=== PATIENT | male | born 1945 | race Two or more races ===

== ENCOUNTER 2024-12-15 09:18 | Inpatient (IN) | payer OTHER, MEDICAID ==
[~2024-12-15] VITALS: Ht 182.9 cm; Wt 63.0 kg
--- NOTE | 2024-12-15 10:36 | ED.PDOC ---
HPI Comments 79 y/o M, presents to the ED for CC of chest pain. Patient states he has been experiencing left-sided, non-radiating, chest pain with associated symptoms of shortness of breath x1week. Patient reports, chest pain to be "tight" in nature. Patient denies fever, chills, sore-throat, abdominal pain, nausea, vomiting, headache, numbness, or tingling. No other symptoms or modifying factors are present at this time. Chief Complaint: Chest Pain Time Seen by MD: 09:45 Reviewed Notes: Nurses Notes, Medications, Allergies Allergies: Coded Allergies: NO KNOWN ALLERGIES (Unverified , 12/15/24) Information Source: Patient Mode of Arrival: Wheelchair Severity: Moderate Timing: Weeks Duration: Since onset Prehospital treatment: None Location: Chest (L) Radiation: No Radiation Quality: Tightness Onset: At Rest Cardiac Risk Factors: None PE Risk Factors: None History of: None Modifying Factors: Nothing Associated Signs and Symptoms: SOB Past Medical History PAST MEDICAL HISTORY: Denies Surgical History: Denies all surgeries Family History Family History: Unknown Social History Smoker: Non-Smoker Alcohol: Denies ETOH Use Drugs: Denies Drug Use Lives In: Home Constitutional: denies: chills, diaphoresis, fatigue, fever, malaise, sweats, weakness, others EENTM: denies: blurred vision, double vision, ear bleeding, ear discharge, ear drainage, ear pain, ear ringing, eye pain, eye redness, hearing loss, mouth pain, mouth swelling, nasal discharge, nose bleeding, nose congestion, nose pain, photophobia, tearing, throat pain, throat swelling, voice changes, others Respiratory: reports: shortness of breath; denies: cough, hemoptysis, orthopnea, SOB at rest, SOB with excertion, stridor, wheezing, others Cardiovascular: reports: chest pain; denies: dizzy spells, diaphoresis, Dyspnea on exertion, edema, irregular heart beat, left arm pain, lightheadedness, palpitations, PND, syncope, others Gastrointestinal: denies: abdomen distended, abdominal pain, blood streaked bowels, constipated, diarrhea, dysphagia, difficulty swallowing, hematemesis, melena, nausea, poor appetite, poor fluid intake, rectal bleeding, rectal pain, vomiting, others Genitourinary: denies: burning, dysuria, flank pain, frequency, hematuria, incontinence, penile discharge, penile sore, pain, testicle pain, testicle swelling, urgency, others Neurological: denies: dizziness, fainting, headache, left sided numbness, left sided weakness, numbness, paresthesia, pre-existing deficit, right sided numbness, right sided weakness, seizure, speech problems, tingling, tremors, weakness, others Musculoskeletal: denies: back pain, gout, joint pain, joint swelling, muscle pain, muscle stiffness, neck pain, others Integumetry: denies: bruises, change in color, change in hair/nails, dryness, laceration, lesions, lumps, rash, wounds, others Allergic/Immunocompromised: denies: Difficulty Healing, Frequent Infections, Hives, Itching, others Hematologic/Lymphatic: denies: anemia, blood clots, easy bleeding, easy bruising, swollen glands, others Endocrine: denies: excessive hunger, excessive sweating, excessive thirst, excessive urination, flushing, intolerance to cold, intolerance to heat, unexplained weight gain, unexplained weight loss, others Psychiatric: denies: anxiety, bipolar disorder, depression, hopeless, panic disorder, schizophrenia, sleepless, suicidal, others All Other Systems: Reviewed and Negative Physical Exam General Appearance: No Apparent Distress, Normal HEENT: Normal ENT Inspection, Pharynx Normal Neck: Full Range of Motion, Non-Tender, Normal, Normal Inspection Respiratory: Chest Non-Tender, Lungs Clear, No Accessory Muscle Use, No Respiratory Distress, Normal Breath Sounds Cardiovascular: No Edema, No Murmur, No Gallop, Normal Peripheral Pulses, Regular Rate/Rhythm Breast Exam: Deferred Gastrointestinal: No Organomegaly, Non Tender, No Pulsatile Mass, Normal Bowel Sounds, Soft Genitalia: Deferred Pelvic: Deferred Rectal: Deferred Extremities: No calf tenderness, Normal capillary refill, Normal inspection, Normal range of motion, Non-tender, No pedal edema Musculoskeletal : Apperance: Normal Neurologic: Alert, professional bondsman II-XII nml as Tested, No Motor Deficits, Normal Affect, Normal Mood, No Sensory Deficits Cerebellar Function: Normal Reflexes: Normal Skin: Dry, Normal Color, Warm Lymphatic: No Adenopathy Was a procedure done? Was a procedure done?: No CP Differential Dx Differential Diagnosis: Hypoxia, PAC's Differential Diagnosis: Chest Wall Pain, Costochondritis, Esophageal reflux/spasm, Gastritis, Pneumonia X-Ray, Labs, Meds, VS Vital Signs Date Time Temp Pulse Resp B/P (MAP) Pulse Ox O2 Delivery O2 Flow Rate FiO2 12/15/24 12:33 87 12/15/24 10:20 65 12/15/24 09:24 82 12/15/24 09:18 98.0 52 18 146/67 94 98.0 Lab Test 12/15/24 12:40 12/15/24 10:56 12/15/24 09:52 Range/Units Troponin I High Sensitivity Pending 45 48 </=54 ng/L White Blood Count 7.7 4.4-10.8 10^3/uL Red Blood Count 3.34 L 4.5-5.90 10^6/uL Hemoglobin 9.9 L 13.5-17.5 g/dL Hematocrit 30.9 L 41.0-53.0 % Mean Corpuscular Volume 92.5 80.0-100.0 fL Mean Corpuscular Hemoglobin 29.6 28.0-32.0 pg Mean Corpuscular Hemoglobin Concent 32.0 32.0-36.0 g/dL Red Cell Distribution Width 17.4 H 11.8-14.3 % Platelet Count 207 140-450 10^3/uL Mean Platelet Volume 8.3 6.9-10.8 fL Neutrophils (%) (Auto) 81.1 H 37.0-80.0 % Lymphocytes (%) (Auto) 11.2 10.0-50.0 % Monocytes (%) (Auto) 6.8 0.0-12.0 % Eosinophils (%) (Auto) 0.5 0.0-7.0 % Basophils (%) (Auto) 0.4 0.0-2.0 % Neutrophils # (Auto) 6.3 1.6-8.6 10 ^3/uL Lymphocytes # (Auto) 0.9 0.4-5.4 10 ^3/uL Monocytes # (Auto) 0.5 0-1.3 10 ^3/uL Eosinophils # (Auto) 0 0-0.8 10 ^3/uL Basophils # (Auto) 0 0-0.2 10 ^3/uL Nucleated Red Blood Cells 0.1 % Sodium Level 143 136-145 mmol/L Potassium Level 4.4 3.5-5.1 mmol/L Chloride Level 103 98-107 mmol/L Carbon Dioxide Level 34 H 20-31 mmol/L Anion Gap 6 5-15 Blood Urea Nitrogen 13 9-23 mg/dL Creatinine 1.22 0.700-1.30 mg/dL Glomerular Filtration Rate Calc 60 >90 mL/min BUN/Creatinine Ratio 10.7 10.0-20.0 Serum Glucose 113 H 74-106 mg/dL Calcium Level 9.3 8.7-10.4 mg/dL [place] [id number] Ph: [phone] DIAGNOSTIC IMAGING Diagnostic Imaging Report : [id number] Signed PATIENT: JAMAAL LE ACCT: [id number] UNIT: [id number] : 1945 LOC: ER ROOM / BED: / AGE / SEX: 79 / M ADM STATUS: REG ER SERVICE 0936 ORDERING PHYSICIAN: MILE BROOKS MD PROCEDURE(s): CXRP - CHEST PORTABLE REASON: chest pain ORDER NUMBER(s): [id number], ACCESSION NUMBER(s): [id number] XY CHEST PORTABLE, HISTORY: chest pain COMPARISON: None None TECHNICAL DATA: 1 view of the chest was obtained. FINDINGS: Lines and tubes: None Cardiomediastinal silhouette: normal Pulmonary vasculature: prominent Lung expansion: normal Lung airspace: Trace bibasilar atelectasis. Lung interstitium: normal Pleura: Trace right pleural effusion. Pneumothorax: no Bones: Unremarkable Other: no IMPRESSION: Trace bibasilar atelectasis. Trace right pleural effusion. ATED BY: JOSE GUADALUPE PAGE MD DICTATED DATE/TIME: 12/15/24 1038 SIGNED BY: JOSE GUADALUPE PAGE MD SIGNED DATE/TIME: 12/15/24 1038 CC: Time of 1ST Reevaluation: 10:15 Reevaluation 1ST: Unchanged Patient Education/Counseling: Diagnosis, Treatment Family Education/Counseling: No Family Present SEPSIS Sepsis Screen Date sepsis recognized/suspect: Dec 15, 2024 Time Sepsis recognized/suspect: 0918 Recent Procedure: No On Antibiotic Therapy: No Respiratory Rate >20: No Heart Rate >90: No Temp<36 C (96.8 F) or >38.3 C: No SBP <90 or MAP <65 mmHG: No New Acute Mental Status Change: No Is the patient on CPAP, BIPAP,: No Physician Orders Chest Portable (12/15/24 09:36) Troponin-I Hs (12/15/24 12:36) Vital Signs Date Time Temp Pulse Resp B/P (MAP) Pulse Ox O2 Delivery O2 Flow Rate FiO2 12/15/24 12:33 87 12/15/24 10:20 65 12/15/24 09:24 82 12/15/24 09:18 98.0 52 18 146/67 94 98.0 Laboratory Tests Test 12/15/24 09:52 White Blood Count 7.7 10^3/uL (4.4-10.8) Departure 1 Departure Time of Disposition: 13:16 ([place] Authorization [id number] presented with chest pain that was concerning for possible STEMI, ACS, PE, Pneumonia, Muscle Strain, COPD, Dissection. Data: 1. I ordered and reviewed the result of at least 3 labs including a CBC, BMP, and Troponin. 2. I independently interpreted the following tests: EKG which shows sinus arrhythmia and Chest X- ray which shows left pleural effusion.Risk:This patient has a high risk of morbidity due to further diagnostic testing or treatment and may suffer from an acute cardiac or respiratory disorder. Workup reveals concern for ACS and patient should be admitted for further workup and possible expert consultation. ) Impression: Primary Impression: Acute chest pain Additional Impression: Shortness of breath Disposition: 02 SHORT TERM HOSPITAL Admit to: Med Surg Condition: Serious Critical Care Note Critical Care Time?: Yes Critical care comment: Acute chest pain Authorized and Performed by: Mile Brooks MD Total critical care time: Approximately 38 minutes Due to a high probability of clinically significant, life threatening deterioration, the patient required my highest level of preparedness to intervene emergently and I personally spent this critical care time directly and personally managing the patient. This critical care time included obtaining a history; examining the patient; pulse oximetry; ordering and review of studies; arranging urgent treatment with development of a management plan; evaluation of patient's response to treatment; frequent reassessment; and, discussions with other providers. This critical care time was performed to assess and manage the high probability of imminent, life-threatening deterioration that could result in multi-organ failure. It was exclusive of separately billable procedures and treating other patients and teaching time. Please see my other sections and the rest of the note for further information on patient assessment and treatment. Stability Stability form required: No Heart Score Heart Score: Heart Score Response (Comments) Value History Moderate Suspicious 1 EKG Repolarization Disturb 1 Age >65 2 Risk Factors >3 or Hx ASHD 2 Troponin 1-2 x's Normal limit 1 Total 7 I personally scribed for MILE BROOKS MD ([email or web address]) on 12/15/24 at 10:35. Electronically submitted by Pat Muñoz ([email or web address]). I personally scribed for MILE BROOKS MD ([email or web address]) on 12/15/24 at 12:54. Electronically submitted by Pat Muñoz ([email or web address]). MILE BROOKS MD Dec 15, 2024 10:35
--- NOTE | 2024-12-15 10:40 | DVH ---
XY CHEST PORTABLE, HISTORY: chest pain COMPARISON: None None TECHNICAL DATA: 1 view of the chest was obtained. FINDINGS: Lines and tubes: None Cardiomediastinal silhouette: normal Pulmonary vasculature: prominent Lung expansion: normal Lung airspace: Trace bibasilar atelectasis. Lung interstitium: normal Pleura: Trace right pleural effusion. Pneumothorax: no Bones: Unremarkable Other: no IMPRESSION: Trace bibasilar atelectasis. Trace right pleural effusion.
[2024-12-15 10:41] LABS: Hematocrit 30.9 % (41.0-53.0); Hemoglobin 9.9 g/dL (13.5-17.5); Mean Corpuscular Hemoglobin 29.6 pg (28.0-32.0); Mean Corpuscular Volume 92.5 fL (80.0-100.0); Nucleated Red Blood Cells % 0.1 %
[2024-12-15 10:51] LABS: Anion Gap 6 (5-15); Chloride 103 mmol/L (98-107); Potassium 4.4 mmol/L (3.5-5.1); Sodium 143 mmol/L (136-145)
[2024-12-15 10:52] LABS: Calcium 9.3 mg/dL (8.7-10.4)
[2024-12-15 10:56] LABS: Carbon Dioxide 34 mmol/L (20-31)
[2024-12-15 10:57] LABS: BUN/Creatinine Ratio 10.7 (10.0-20.0); Blood Urea Nitrogen 13 mg/dL (9-23)
[2024-12-15 10:58] LABS: Glucose 113 mg/dL (74-106)
--- NOTE | 2024-12-15 12:36 | ECG ---
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
--- NOTE | 2024-12-15 12:36 | ECG ---
[facility] Test Date: 2024-12-15 Test Time: 10:20:33 Pat Name: JAMAAL LE Department: [facility] ED Patient ID: [id number] Room: Gender: M Usability Strategist: SAMANTHA : 1945 Requested By: MILE MCDUFFIE Order Number: [id number] Reading MD: Measurements Intervals [place] Rate: 65 P: 0 VA: 0 QRS: 95 QRSD: 127 T: 13 QT: 417 QTc: 434 Interpretive Statements Atrial fibrillation Consider left ventricular hypertrophy Lateral infarct, age indeterminate Anterior ST elevation, probably due to LVH Please click the below link to view image of tracing.
--- NOTE | 2024-12-15 12:37 | ECG ---
[facility] Test Date: 2024-12-15 Test Time: 12:33:09 Pat Name: JAMAAL LE Department: [facility] ED Patient ID: [id number] Room: Gender: M Barrel Polisher Inside: SAMANTHA : 1945 Requested By: MILE MCDUFFIE Order Number: [id number] Reading MD: Measurements Intervals [place] Rate: 87 P: 0 AR: 0 QRS: 108 QRSD: 131 T: 22 QT: 389 QTc: 468 Interpretive Statements Atrial fibrillation Nonspecific intraventricular conduction delay Lateral infarct, age indeterminate Borderline ST elevation, anterior leads Baseline wander in lead(s) II Please click the below link to view image of tracing.
[2024-12-15] MEDS: NITROGLYCERIN 0.4 MG SL TAB SL ONE (14:08)
[2024-12-15] MEDS ORDERED: MORPHINE SULFATE INJ 2 MG/ml SYRG IV PRN (19:30)
[2024-12-15] MEDS ORDERED: ONDANSETRON HCL 4 MG/2 ML VIAL IV PRN (19:30)
[2024-12-15] MEDS ORDERED: NITROGLYCERIN 0.4 MG SL TAB SL PRN (19:30)
[2024-12-15 21:00] VITALS: BP 135/59; PULSE 56; RESP 18; TEMP 97.8; O2SAT 100
[2024-12-15] MEDS ORDERED: ALBUTEROL SULF 2.5 MG/0.5ML(0.5%) NEB SOLN NEB PRN (21:45)
--- NOTE | 2024-12-15 21:49 | DVHHP2 ---
History of Present Illness Reason for Visit: Chest pain History of Present Illness 79-year-old male presents for evaluation of chest pain. Patient reports a one- week history of left-sided nonradiating chest tightness with shortness for breath. No nausea or vomiting. No cough or fever. Past Medical History Hypertension, COPD, prediabetes Past Surgical History Open heart surgery Family History Noncontributory Smoke: No ALCOHOL: none Drugs: None Review of Systems Review of Systems Review of systems are currently negative otherwise addressed in HPI. Allergies: Coded Allergies: NO KNOWN ALLERGIES (Unverified , 12/15/24) Medications Current Medications Medications Dose Ordered Sig/Ricky Route Start Time Stop Time Status Last Admin Dose Admin Aspirin 81 mg DAILY PO 12/16/24 10:00 Atorvastatin Calcium 10 mg HS PO 12/15/24 22:00 Ondansetron HCl 4 mg Q4HP PRN IV 12/15/24 19:30 Acetaminophen 650 mg Q6HP PRN PO 12/15/24 19:30 Nitroglycerin 0.4 mg Q5MINP PRN SL 12/15/24 19:30 Morphine Sulfate 2 mg Q30M PRN IV 12/15/24 19:30 Lisinopril 10 mg DAILY PO 12/16/24 10:00 UNV Albuterol 2.5 mg Q6HPRN PRN NEB 12/15/24 21:45 UNV Exam Vital Signs Vital Signs Date Time Temp Pulse Resp B/P (MAP) Pulse Ox O2 Delivery O2 Flow Rate FiO2 12/15/24 21:00 97.8 56 18 135/59 (84) 100 97.8 Exam Gen: 79-year-old male in mild distress. Skin: Warm, dry, normal color and texture, no rash. HEENT: Normocephalic atraumatic, mucous membranes moist and pink. Neck: Cervical and supraclavicular nodes normal without enlargement, trachea is midline, thyroid gland is normal without masses. Pulmonary: Clear to auscultation and percussion bilaterally. Cardiac: Regular rate and rhythm. No murmur Abdomen: Soft, nontender, nondistended, bowel sounds present all 4 quadrants, no guarding, no rigidity, no organomegaly. Extremities: No cyanosis, clubbing, no edema Neuro: Cranial nerves II through XII grossly intact, normal affect and speech, no focal motor deficits. Labs/Xrays ORDERING PHYSICIAN: MILE MCDUFFIE MD PROCEDURE(s): CXRP - CHEST PORTABLE REASON: chest pain ORDER NUMBER(s): [id number], ACCESSION NUMBER(s): [id number] XY CHEST PORTABLE, HISTORY: chest pain COMPARISON: None None TECHNICAL DATA: 1 view of the chest was obtained. FINDINGS: Lines and tubes: None Cardiomediastinal silhouette: normal Pulmonary vasculature: prominent Lung expansion: normal Lung airspace: Trace bibasilar atelectasis. Lung interstitium: normal Pleura: Trace right pleural effusion. Pneumothorax: no Bones: Unremarkable Other: no IMPRESSION: Trace bibasilar atelectasis. Trace right pleural effusion. Labs Test 12/15/24 12:40 12/15/24 09:52 Range/Units Troponin I High Sensitivity 44 </=54 ng/L White Blood Count 7.7 4.4-10.8 10^3/uL Red Blood Count 3.34 L 4.5-5.90 10^6/uL Hemoglobin 9.9 L 13.5-17.5 g/dL Hematocrit 30.9 L 41.0-53.0 % Mean Corpuscular Volume 92.5 80.0-100.0 fL Mean Corpuscular Hemoglobin 29.6 28.0-32.0 pg Mean Corpuscular Hemoglobin Concent 32.0 32.0-36.0 g/dL Red Cell Distribution Width 17.4 H 11.8-14.3 % Platelet Count 207 140-450 10^3/uL Mean Platelet Volume 8.3 6.9-10.8 fL Neutrophils (%) (Auto) 81.1 H 37.0-80.0 % Lymphocytes (%) (Auto) 11.2 10.0-50.0 % Monocytes (%) (Auto) 6.8 0.0-12.0 % Eosinophils (%) (Auto) 0.5 0.0-7.0 % Basophils (%) (Auto) 0.4 0.0-2.0 % Neutrophils # (Auto) 6.3 1.6-8.6 10 ^3/uL Lymphocytes # (Auto) 0.9 0.4-5.4 10 ^3/uL Monocytes # (Auto) 0.5 0-1.3 10 ^3/uL Eosinophils # (Auto) 0 0-0.8 10 ^3/uL Basophils # (Auto) 0 0-0.2 10 ^3/uL Nucleated Red Blood Cells 0.1 % Sodium Level 143 136-145 mmol/L Potassium Level 4.4 3.5-5.1 mmol/L Chloride Level 103 98-107 mmol/L Carbon Dioxide Level 34 H 20-31 mmol/L Anion Gap 6 5-15 Blood Urea Nitrogen 13 9-23 mg/dL Creatinine 1.22 0.700-1.30 mg/dL Glomerular Filtration Rate Calc 60 >90 mL/min BUN/Creatinine Ratio 10.7 10.0-20.0 Serum Glucose 113 H 74-106 mg/dL Calcium Level 9.3 8.7-10.4 mg/dL SEPSIS Sepsis Screen Date sepsis recognized/suspect: Dec 15, 2024 Time Sepsis recognized/suspect: 917 Recent Procedure: No On Antibiotic Therapy: No Respiratory Rate >20: No Heart Rate >90: No Temp<36 C (96.8 F) or >38.3 C: No SBP <90 or MAP <65 mmHG: No New Acute Mental Status Change: No Is the patient on CPAP, BIPAP,: No Physician Orders Aspirin Tablet (12/16/24 10:00) Atorvastatin (Lipitor) (12/15/24 22:00) Basic Metabolic Panel (12/16/24 04:00) * Cardiology Consult (12/15/24 19:21) Admit (12/15/24 19:21) Ondansetron Hcl (Zofran) (12/15/24 19:30) Cardiac Diet-2gna,Lofat,Lochol (12/16/24 Breakfast) Echo 2d Mode Cardiac Dop (12/15/24 19:21) Condition: Fair (12/15/24 19:21) Acetaminophen Tablet (Tylenol Tablet) (12/15/24 19:30) Bedrest With Bathroom Privileg (12/15/24 19:21) Nitroglycerin Sublingual (Ntrostat Subli (12/15/24 19:30) Morphine Sulfate Injection (12/15/24 19:30) Stat Ekg For Chest Pain (12/15/24 19:21) Notify Md Of Changes From Base (12/15/24 19:21) Kitchen Hand For 24 Hours (12/15/24 19:21) Emergency Dysrhythmia Protocol (12/15/24 19:21) Rhythm Strips Once Every Shift (12/15/24 19:21) Oxygen By Nasal Cannula (12/15/24 19:21) Complete Blood Count (12/16/24 04:00) Lisinopril Tablet (Zestril Tablet) (12/16/24 10:00) Albuterol Medneb (Ventolin Medneb) (12/15/24 21:45) Vital Signs Date Time Temp Pulse Resp B/P (MAP) Pulse Ox O2 Delivery O2 Flow Rate FiO2 12/15/24 21:00 97.8 56 18 135/59 (84) 100 97.8 12/15/24 20:43 63 19 135/59 (84) 97 12/15/24 20:00 59 12/15/24 14:10 98.0 56 16 153/68 (96) 91 98.0 12/15/24 14:08 153/68 Laboratory Tests Test 12/15/24 09:52 White Blood Count 7.7 10^3/uL (4.4-10.8) Medications Medications Dose Ordered Sig/Ricky Route Start Time Stop Time Status Last Admin Dose Admin Aspirin 324 mg ONCE ONCE PO 12/15/24 13:15 12/15/24 13:46 DC 12/15/24 14:07 324 MG Nitroglycerin 0.4 mg ONCE ONCE SL 12/15/24 13:15 12/15/24 13:46 DC 12/15/24 14:08 0.4 MG Assessment/Plan Assessment/Plan Assessment Chest pain rule out ACS Hypertension COPD Mild anemia Plan Admit the patient to telemetry to the hospitalist Cardiology consultation Echocardiogram pending Family will provide list of medications tomorrow. Continue treatment per orders. Plan discussed with: Patient, Other My Orders Orders - ATILIO MASON Procedure Category Date Status Time Aspirin Tablet PHA 12/16/24 In Process 10:00 Atorvastatin (Lipitor) PHA 12/15/24 In Process 22:00 Basic Metabolic Panel LAB 12/16/24 Verified 04:00 * Cardiology Consult CONS 12/15/24 Transmitted 19:21 Admit ADMIT 12/15/24 Transmitted 19:21 Ondansetron Hcl PHA 12/15/24 In Process (Zofran) 19:30 Cardiac DIET 12/16/24 Transmitted Diet-2gna,Lofat,Lochol Breakfast Echo 2d Mode Cardiac US 12/15/24 Logged DOP 19:21 Condition: Fair [facility] 12/15/24 In Process 19:21 Acetaminophen Tablet [facility] 12/15/24 In Process (Tylenol Tablet) 19:30 Bedrest With Bathroom [facility] 12/15/24 In Process Privileg 19:21 Nitroglycerin [facility] 12/15/24 In Process Sublingual (Ntrostat 19:30 Morphine Sulfate [facility] 12/15/24 In Process Injection 19:30 Stat Ekg For Chest [facility] 12/15/24 In Process Pain 19:21 Notify Md Of Changes [facility] 12/15/24 In Process From Base 19:21 Kitchen Hand For [facility] 12/15/24 In Process 24 Hours 19:21 Emergency Dysrhythmia [facility] 12/15/24 In Process Protocol 19:21 Rhythm Strips Once [facility] 12/15/24 In Process Every Shift 19:21 Oxygen By Nasal RT 12/15/24 Transmitted Cannula 19:21 Complete Blood Count LAB 12/16/24 Verified 04:00 Lisinopril Tablet [facility] 12/16/24 Transmitted (Zestril Tablet) 10:00 Albuterol Medneb [facility] 12/15/24 Transmitted (Ventolin Medneb) 21:45 Date of Service: Dec 15, 2024 Billing Provider: ATILIO MASON Common Visit Codes: [id number] INP/OBS CARE (HIGH) ATILIO MASON Dec 15, 2024 21:49
[2024-12-15 22:23] LABS: INR 1.13 (0.9-1.15); Partial Thromboplastin Time 25.5 SEC (24.5-34.5); Prothrombin Time 11.8 sec (9.3-11.8)
[2024-12-15 22:25] LABS: Total Iron Binding Capacity 350.0 ug/dL (250-425)
[2024-12-15] MEDS: ATORVASTATIN 20 MG TAB PO SCH (22:28)
[2024-12-15 22:36] LABS: Triglycerides 32 mg/dL (< 150)
[2024-12-15 22:38] LABS: Cholesterol 121 mg/dL (< 200); HDL Cholesterol 54 mg/dL (40-59)
[2024-12-15 22:41] LABS: Iron 28.0 ug/dL (65-175)
[2024-12-15 23:27] VITALS: BP 146/81; PULSE 65; RESP 17; TEMP 98.5; O2SAT 100
[2024-12-15 23:37] VITALS: BP 146/81; PULSE 65; RESP 17; TEMP 98.5; O2SAT 100
[2024-12-16] VITALS (11 sets, daily range): BP systolic 103–135; BP diastolic 49–79; PULSE 47–80; RESP 12–18; TEMP 97.8–98.5; O2SAT 94–100
[2024-12-16 07:29] LABS: Chloride 105 mmol/L (98-107); Potassium 5.0 mmol/L (3.5-5.1); Sodium 142 mmol/L (136-145)
[2024-12-16 07:30] LABS: Anion Gap 4 (5-15); Hematocrit 28.4 % (41.0-53.0); Hemoglobin 9.2 g/dL (13.5-17.5); Mean Corpuscular Hemoglobin 29.6 pg (28.0-32.0); Mean Corpuscular Volume 91.6 fL (80.0-100.0); Nucleated Red Blood Cells % 0.0 %
[2024-12-16 07:35] LABS: BUN/Creatinine Ratio 9.1 (10.0-20.0); Blood Urea Nitrogen 10 mg/dL (9-23); Glucose 86 mg/dL (74-106)
[2024-12-16 07:41] LABS: Calcium 8.6 mg/dL (8.7-10.4); Carbon Dioxide 33 mmol/L (20-31)
[2024-12-16] MEDS ORDERED: ENOXAPARIN SOD 100 MG/1 ML SYRINGE SC SCH (10:00)
[2024-12-16] MEDS: LISINOPRIL 5 MG TAB PO SCH (10:00)
[2024-12-16] MEDS: FUROSEMIDE 40 MG/4 ML VIAL IV ONE (10:45)
[2024-12-16 10:51] LABS: Hepatitis B Surface Antigen Negative (Negative); Hepatitis C Antibody Negative (Negative)
--- NOTE | 2024-12-16 10:59 | DVHINCON2 ---
Date Seen: Dec 16, 2024 Referring Physician BRITTON Prajapati Reason for Consultation Chest pain History of Present Illness This is a 79-year-old man who presented to the emergency room with a chief complaint of chest pain since yesterday. He is somewhat a poor historian. Describes his chest pain as substernal, tightness like, nonradiating, intermittent, and associated with ALANIS, dizziness, and visual disturbances. He underwent multiple 12 lead electrocardiogram revealing an atrial fibrillation rhythm at a controlled rate with noticeable ventricular pauses. cardiac monitor reviewed revealing a persistent atrial fibrillation rhythm with a heart rate as low as 37 bpm and associated ventricular pauses up to 3 seconds. Serial troponin levels are negative. Follows up in the outpatient setting with the primary electrical solderer in [facility] with last appointment completed three months ago. Significant medical history includes unspecified atrial fibrillation on warfarin therapy, coronary artery disease status post unspecified vessel coronary artery bypass graft in 2018, severe aortic valve stenosis status post transcatheter aortic valve replacement (bioprosthetic) in 2020, congestive heart failure, hypertension, dyslipidemia, anemia in chronic disease, and left inguinal hernia. Past Medical History Past medical history reviewed. No other significant than mentioned above. Past Surgical History CABG, 2018 TAVR, 2020 Family History: FH: alcoholism G8 SISTER FH: cancer G8 FATHER, Family History Family history reviewed. Social History Denies the use of illicit drugs, alcohol, or tobacco use. Allergies: Coded Allergies: NO KNOWN ALLERGIES (Unverified , 12/15/24) Home Meds Home meds not available to review. Current Medications Current Medications Medications (Trade) Dose Ordered Sig/Ricky Route PRN Reason Start Time Stop Time Status Last Admin Aspirin 81 mg DAILY PO 12/16/24 10:00 12/16/24 09:57 Atorvastatin Calcium (Lipitor) 10 mg HS PO 12/15/24 22:00 12/15/24 22:28 Ondansetron HCl (Zofran) 4 mg Q4HP PRN IV NAUSEA / VOMITING 12/15/24 19:30 Acetaminophen (Tylenol Tablet) 650 mg Q6HP PRN PO PAIN SCALE 1-3 OR TEMP>100.4 12/15/24 19:30 Nitroglycerin (Ntrostat Sublingual) 0.4 mg Q5MINP PRN SL FOR CHEST PAIN 12/15/24 19:30 Morphine Sulfate 2 mg Q30M PRN IV FOR CHEST PAIN 12/15/24 19:30 Lisinopril (Zestril Tablet) 10 mg DAILY PO 12/16/24 10:00 Albuterol (Ventolin Medneb) 2.5 mg Q6HPRN PRN NEB SHORTNESS OF BREATH 12/15/24 21:45 Enoxaparin Sodium (Lovenox) 70 mg Q12HR SC 12/16/24 10:00 Review of Systems Constitutional: No symptom reported Ears, Nose, & Throat: No symptom reported Eyes: No symptom reported Neurological: Headache, dizziness, visual disturbance Pulmonary/Respiratory: No symptom reported Cardiovascular: Chest pain Gastrointestinal: No symptom reported Genitourinary: No symptom reported Musculoskeletal: No symptom reported Skin: No symptom reported Psychiatric: No symptom reported Endocrine: No symptom reported Hemotologic/Lymphatic: No symptom reported Vital Signs Vital Signs Date Time Temp Pulse Resp B/P (MAP) Pulse Ox O2 Delivery O2 Flow Rate FiO2 12/16/24 10:00 103/52 12/16/24 09:24 98.4 52 14 100 98.4 12/16/24 08:31 Nasal Cannula* 2 28 Physical Exam General Appearance: Cooperative. Well developed. Thin. In no acute distress Head Exam: Normal inspection Neck Exam: Normal inspection. Non-tender. Normal alignment Pulmonary/Respiratory: Chest non-tender. Diminished bilateral breath sounds Cardiovascular/Chest: Irregularly irregular rate and rhythm. AFib, controlled rate. No murmurs. + JVD. Peripheral Pulses: 2+ Radial (R). 2+ Radial (L). 2+ Pedal (R). 2+ Pedal (L) Abdominal Exam: Normal bowel sounds. Soft. Ankle Exam: Positive ankle pitting edema, 1+ Lower extremities: Positive lower extremity pitting edema, 1+ Neuro/Mental Status: A&O x3. Coherent but poor historian Thoughts/Psych: Normal thought pattern. Appropriate mood and affect. Good judgement and insight Appearance: In no acute distress Skin Exam: Normal inspection. Normal color. Warm. Dry Labs/Diagnostic Data Labs Test 12/16/24 06:06 12/15/24 22:00 12/15/24 12:40 Range/Units White Blood Count 6.6 4.4-10.8 10^3/uL Red Blood Count 3.10 L 4.5-5.90 10^6/uL Hemoglobin 9.2 L 13.5-17.5 g/dL Hematocrit 28.4 L 41.0-53.0 % Mean Corpuscular Volume 91.6 80.0-100.0 fL Mean Corpuscular Hemoglobin 29.6 28.0-32.0 pg Mean Corpuscular Hemoglobin Concent 32.3 32.0-36.0 g/dL Red Cell Distribution Width 17.6 H 11.8-14.3 % Platelet Count 176 140-450 10^3/uL Mean Platelet Volume 8.8 6.9-10.8 fL Neutrophils (%) (Auto) 67.5 37.0-80.0 % Lymphocytes (%) (Auto) 19.7 10.0-50.0 % Monocytes (%) (Auto) 10.6 0.0-12.0 % Eosinophils (%) (Auto) 1.7 0.0-7.0 % Basophils (%) (Auto) 0.5 0.0-2.0 % Neutrophils # (Auto) 4.5 1.6-8.6 10 ^3/uL Lymphocytes # (Auto) 1.3 0.4-5.4 10 ^3/uL Monocytes # (Auto) 0.7 0-1.3 10 ^3/uL Eosinophils # (Auto) 0.1 0-0.8 10 ^3/uL Basophils # (Auto) 0 0-0.2 10 ^3/uL Nucleated Red Blood Cells 0.0 % Sodium Level 142 136-145 mmol/L Potassium Level 5.0 3.5-5.1 mmol/L Chloride Level 105 98-107 mmol/L Carbon Dioxide Level 33 H 20-31 mmol/L Anion Gap 4 L 5-15 Blood Urea Nitrogen 10 9-23 mg/dL Creatinine 1.10 0.700-1.30 mg/dL Glomerular Filtration Rate Calc 68 >90 mL/min BUN/Creatinine Ratio 9.1 L 10.0-20.0 Serum Glucose 86 74-106 mg/dL Calcium Level 8.6 L 8.7-10.4 mg/dL Prothrombin Time 11.8 9.3-11.8 sec Prothrombin Time INR 1.13 0.9-1.15 Activated Partial Thromboplast Time 25.5 24.5-34.5 SEC Iron Level 28 L 65-175 ug/dL Total Iron Binding Capacity 350 250-425 ug/dL Percent Iron Saturation 8.0 L 20-55 % Triglycerides Level 32 < 150 mg/dL Cholesterol Level 121 < 200 mg/dL LDL Cholesterol 54 < 100 mg/dL HDL Cholesterol 54 40-59 mg/dL Troponin I High Sensitivity 44 </=54 ng/L Thyroid Stimulating Hormone (TSH) 1.22 0.55-4.78 uIU/mL Assessment Atrial fibrillation with slow ventricular rate, likely Stage IIIb (on warfarin therapy at home) Acute on chronic decompensated unspecified CHF, NYHA Class III Chest pain rule out progressive coronary artery disease Coronary artery disease status post unspecified vessel CABG Status post TAVR (bioprosthetic) Hypertension Anemia in chronic disease Plan/Recommendation (Dr. Grimm) We will continue further cardiac evaluation with a transthoracic echocardiogram and Cardiolite stress test to rule out progressive coronary artery disease. The patient also presents with atrial fibrillation with slow ventricular rate with recommendations for a pacemaker implantation. Hold warfarin therapy and initiate therapeutic Lovenox. Monitor ECG changes closely and notify for a heart rate < 30 bpm. Avoid AV kenya blocking agents. Consider transcutaneous vs transvenous pacing if deemed necessary as last warfarin administration was completed on . Continue single-antiplatelet therapy and lipid lowering agent given history of CAD. Initiate preload reduction, strict I&Os, and maintain fluid restrictions. Please reconcile home medications. Consider transfer to [facility] for invasive cardiac procedures. Rest of orders per clinical course. Thank you for allowing us to participate in this patient's care. Please call if you have any questions or concerns. Critical care time: 45 min. This medical document was created using an electronic medical record system with voice recognition software and computerized dictation system. Although this document has been carefully reviewed, there might still be some phonetic and typographical errors. Occasional wrong-word or ``sound-alike substitutions may have occurred due to the inherent limitations of voice recognition software. These areas are purely typographical due to imperfections of the software programs and do not reflect any compromise in the patient's medical care. Please read the chart carefully and recognize, using context, where these substitutions have occurred. Plan discussed with: Patient, Other NYHA Physical activity limitations: Class3(Marked) ordinary (activity causes symtoms) Date of Service: Dec 16, 2024 Billing Provider: ROLAND CLINE HUMANE OFFICER Cardiology Common Codes: [id number] CARE 30-74 MIN ROLAND CLINE [facility] Dec 16, 2024 10:59
[2024-12-16] MEDS: REGADENOSON 0.4 MG/5 ML SYRG IV ONE ×2 (11:42→11:43)
--- NOTE | 2024-12-16 13:57 | DVHPNRES ---
Progress Note Date Seen: Dec 16, 2024 Resident Creating Document: EDWINA LOZANO RESIDENT Medical Necessity Reason Pt with a Central, PICC or Fol: No Subjective Review of Systems Sampson Ramos is a 79-year-old man with past medical history of CABG, aortic valve placement, CHF, hypertension, dyslipidemia, anemia of chronic disease who presented to the emergency room with a chief complaint of chest pain since yesterday. He is somewhat a poor historian. He describes his chest pain as substernal, tightness like, nonradiating, intermittent, and associated with headache, dizziness, and visual disturbances. He underwent multiple 12 lead electrocardiogram, revealing an atrial fibrillation rhythm at a controlled rate with noticeable ventricular pauses. Serial troponin levels were negative. Cardiology was consulted and they recommended Cardiolite stress test to rule out progressive coronary artery disease. Telemetry was reviewed which showed episodes of AFib. Possibility of a pacemaker placement was discussed with the patient and warfarin was held. Pending echo and BNP. Patient also complained of burning and pain with micturition, so we placed an order for urine analysis and urine culture order. Past Medical history: COPD, CHF, hypertension, dyslipidemia, anemia of chronic disease Past surgical history: CABG, TAVR Social & Personal history: Currently lives with sister and niece Smoking: Denies Alcohol: Denies Drugs: Denies Allergies: No known allergies Patient seen and examined at bedside. Patient is alert and oriented to time, place person and responding to all questions. Eyes: No Pain, No Vision change, No Conjunctivae inflammation, No Eyelid inflammation, No Redness ENT: No Ear pain, No Ear discharge, No Nose pain, No Nose discharge, No Nose congestion, No Mouth pain, No Mouth swelling, No Throat pain, No Throat swelling Cardiovascular: No Chest Pain, No Palpitations, No Orthopnea, No Paroxysmal No Dyspnea, No Edema, No Lt Headedness Respiratory: No Cough, No Dry, No Shortness of breath, No SOB with exertion, No Wheezing, No Hemoptysis, No Pleuritic Pain, No Sputum Gastrointestinal: No Nausea, No Vomiting, No Abdominal Pain, No Diarrhea, No Constipation, No Melena, No Hematochezia Genitourinary: Dysuria, No Frequency, No Incontinence, No Hematuria, No Retention Objective vital signs Vital Sign Date Time Temp Pulse Resp B/P (MAP) Pulse Ox O2 Delivery O2 Flow Rate FiO2 12/16/24 10:00 103/52 12/16/24 09:24 98.4 52 14 100 98.4 12/16/24 08:31 Nasal Cannula* 2 28 Total Intake and Output 12/15/24 12/15/24 12/16/24 15:00 23:00 07:00 Intake Total 200 ml Balance 200 ml medications Current Medications Medications Dose Ordered Sig/Ricky Route Start Time Stop Time Status Last Admin Dose Admin Aspirin 81 mg DAILY PO 12/16/24 10:00 12/16/24 09:57 81 MG Ondansetron HCl 4 mg Q4HP PRN IV 12/15/24 19:30 Acetaminophen 650 mg Q6HP PRN PO 12/15/24 19:30 Nitroglycerin 0.4 mg Q5MINP PRN SL 12/15/24 19:30 Morphine Sulfate 2 mg Q30M PRN IV 12/15/24 19:30 Lisinopril 10 mg DAILY PO 12/16/24 10:00 Albuterol 2.5 mg Q6HPRN PRN NEB 12/15/24 21:45 Atorvastatin Calcium 40 mg HS PO 12/16/24 22:00 Furosemide 40 mg BIDD IV 12/16/24 18:00 Enoxaparin Sodium 70 mg Q12HR SC 12/16/24 10:00 Examination General Appearance: Cooperative. Well developed. Thin. In no acute distress Head Exam: Normal inspection Neck Exam: Normal inspection. Non-tender. Normal alignment Pulmonary/Respiratory: Chest non-tender. Diminished bilateral breath sounds Cardiovascular/Chest: Irregularly irregular rate and rhythm. AFib, controlled rate. No murmurs. + JVD. Peripheral Pulses: 2+ Radial (R). 2+ Radial (L). 2+ Pedal (R). 2+ Pedal (L) Abdominal Exam: Normal bowel sounds. Soft. Ankle Exam: Positive ankle pitting edema, 1+ Lower extremities: Positive lower extremity pitting edema, 1+ Neuro/Mental Status: A&O x3. Coherent but poor historian Thoughts/Psych: Normal thought pattern. Appropriate mood and affect. Good judgement and insight Appearance: In no acute distress Skin Exam: Normal inspection. Normal color. Warm. Dry Nurse was present as lockstitch machine operator during the examination. laboratory and microbiology Laboratory Tests 12/16/24 06:06 Test 12/16/24 06:06 Range/Units Serum Glucose 86 74-106 mg/dL Labs and/or images reviewed: Labs reviewed by me, Image(s) reviewed by me Problem List/Assessment/Plan Problem List/Assessment/Plan Chest pain, rule out ACS AFib History of CAD -EKG showed AFib -tropes x3 negative -echo and BNP pending -cardiology consulted-Cardiolite stress test today -hold warfarin, started on Lovenox -continue reviewing telemetry Suspected UTI -ordered UA and urine culture Essential hypertension, controlled -currently held lisinopril due to soft blood pressures, resume if needed Mild anemia -hemoglobin was 9.2, appears in 28 -monitor H and H PUD prophylaxis: Not indicated DVT prophylaxis: Not indicated Goals of care: Full code, discussed for 20 minutes Plan discussed with patient Plan discussed with Dr. Haq Plan discussed with: Patient, Other (Nurse) My Orders My Orders Orders - EDWINA LOZANO RESIDENT Procedure Category Date Status Time Urinalysis LAB 12/16/24 Logged 10:40 Urine Bacterial CB 12/16/24 Uncollected Culture 10:40 * Burglar Alarm Superintendent CONS 12/16/24 Transmitted Consult 13:35 Date of Service: Dec 16, 2024 Billing Provider: JOSE L HAQ MD Common Visit Codes: [id number] INP/OBS CARE(HIGH) Secondary Visit Codes: [id number] CARE PLAN 30 MINUTES (20 minutes) Addendum Addendum Addendum I was physically present for the duval portions of the service provided to patient by THE RESIDENT. I have reviewed the documentation, discussed the case with resident and agree with the resident's documentation except as noted. Also the patient's clinical case was discussed with the patient's nurse. This medical document was created using an electronic medical record system with computerized dictation system. Although this document has been carefully reviewed, there might still be some phonetic and typographical errors. These areas are purely typographical due to imperfections of the software programs, and do not reflect any compromise in the patient's medical care. Late signature. EDWINA LOZANO RESIDENT Dec 16, 2024 13:57 JOSE L HAQ MD Dec 17, 2024 06:51
[2024-12-16] MEDS: ENOXAPARIN SOD 80 MG/0.8ML SYRINGE SC SCH (14:51)
[2024-12-16] MEDS: FUROSEMIDE 40 MG/4 ML VIAL IV SCH (17:59)
[2024-12-16 18:01] LABS: Urine Protein, UAD Negative (Negative)
--- NOTE | 2024-12-16 19:10 | DVHSR ---
APPROVED REPORT EXAM: Two-dimensional and M-mode echocardiogram with Doppler and color Doppler. Blood Pressure: 123/55 mmHg INDICATION Chest Pain Surgery/Intervention Valve Replacement: Type: AV and MV RISK FACTORS Height: 6', Weight: 145 DIMENSIONS LVDd4.6 (3.8-5.7cm)LA (2D)5.5 (1.9-4.0cm)Aortic Root3.7 (2.0-3.7cm) LVDs3.2 (2.5-4.0cm)LA (MM) (1.9-4.0cm)Aortic Cusp Exc1.1 (1.5-2.0cm) EF (%) 57.0 (55-70%)Rt. Atrium5.9 (1.9-4.0cm)Asc. Aorta3.5 cm IVSd1.3 (0.7-1.1cm)RV (D)5.5 (1.8-2.4cm) PWd1.2 (0.7-1.1cm) Mitral Valve MitralMitral Stenosis E wave1.76m/sMV Mean GR.6mmHg A wavem/sMV Peak GR.19mmHg E/A ratio0.02D MVAcm2 DECEL TimemsPRESS 1/2 [id number] IVRTmsDop MVA1.07cm2 Aortic Valve Aortic ValveAortic Stenosis V10.83m/Lu Mean GR.17mmHg V22.89m/Lu Peak GR.33mmHg LVOT Diameter2.4 (1.8-2.4cm)Doppler AVA1.30cm2 Pulmonic Valve V20.75m/s Tricuspid Valve TR Velocity3.25m/s [id number] Conclusion BOVINE MITRAL AND AORTIC VALVE FUNCTION WELL MODERATE DEGREE LVH AND MODERATE DEGREE LV DIASTOLIC DYSFUNCTION LV EF IS 57% MODERATELY DILATED LA AND RV MODERATELY SEVERE PULMONARY HYPERTENSION NO EFFUSION SUGGESTION: ZAN IF ENDOCARDITIS IS SUSPECTED
[2024-12-16] MEDS: ATORVASTATIN 20 MG TAB PO SCH (22:33)
[2024-12-17] VITALS (10 sets, daily range): BP systolic 100–136; BP diastolic 53–77; PULSE 52–65; RESP 16–18; TEMP 97.3–98.4; O2SAT 94–100
--- NOTE | 2024-12-17 06:52 | DVHPN2 ---
Reviewed: Care Plan, H&P, Labs, Medications, Previous Orders, Radiology, Other (Consultations) Changes from previous H/P or p: No Changes Objective Vitals Vital Signs Date Time Temp Pulse Resp B/P (MAP) Pulse Ox O2 Delivery O2 Flow Rate FiO2 12/17/24 06:20 136/73 12/17/24 05:00 97.6 59 18 100 97.6 12/16/24 21:02 Nasal Cannula 2.0 12/16/24 21:02 28 Intake/Output Intake and Output 12/17/24 07:00 Intake Total 1286 ml Output Total 2175 ml Balance -889 ml Intake Oral 1286 ml Output Urine Total 2175 ml # Voids 6 General Appearance: Alert, Oriented X3, Cooperative, No acute distress HEENT: Atraumatic Lungs: Other (Decreased air entry bilateral with a scattered crackles) Cardiovascular: Other (Irregularly irregular rhythm with abnormal S1 and S2) Abdomen: Normal bowel sounds, Soft, No tenderness Neuro: Normal speech, Cranial nerves 3-12 NL Psych/Mental Status: Mental status NL, Mood NL Medications Current Medications Medications Dose Ordered Sig/Ricky Route Start Time Stop Time Status Last Admin Dose Admin Aspirin 81 mg DAILY PO 12/16/24 10:00 12/16/24 09:57 81 MG Ondansetron HCl 4 mg Q4HP PRN IV 12/15/24 19:30 Acetaminophen 650 mg Q6HP PRN PO 12/15/24 19:30 Nitroglycerin 0.4 mg Q5MINP PRN SL 12/15/24 19:30 Morphine Sulfate 2 mg Q30M PRN IV 12/15/24 19:30 Lisinopril 10 mg DAILY PO 12/16/24 10:00 Albuterol 2.5 mg Q6HPRN PRN NEB 12/15/24 21:45 Atorvastatin Calcium 40 mg HS PO 12/16/24 22:00 12/16/24 22:33 40 MG Furosemide 40 mg BIDD IV 12/16/24 18:00 12/17/24 06:20 40 MG Enoxaparin Sodium 70 mg Q12HR SC 12/16/24 10:00 12/16/24 22:34 70 MG Laboratory Results Laboratory Tests 12/16/24 06:06 Urinalysis Test 12/16/24 16:15 Urine Color Light-yellow (Yellow) Urine Clarity Clear (Clear) Urine pH 6.5 (5.0-9.0) Urine Specific Dola 1.014 (1.001-1.035) Urine Protein Negative (Negative) Urine Ketones Negative (Negative) Urine Blood Negative /uL (Negative) Urine Nitrite Negative (Negative) Urine Bilirubin Negative (Negative) Urine Urobilinogen Normal mg/dL (Negative) Urine Leukocyte Esterase Negative /uL (Negative) Urine RBC 1 /hpf (0 - 3) Urine Microscopic WBC 1 /HPF (0-3) Urine Squamous Epithelial Cells None seen /hpf (<5) Urine Bacteria None seen /hpf (None Seen) Urine Glucose 4+ mg/dL (Normal) H Labs and/or images reviewed: Labs reviewed by me, Image(s) reviewed by me Assessment/Plan Assessment/Plan Covering: Acute hypoxic respiratory failure due to acute on chronic diastolic heart failure Chest pain; to rule out ACS; abnormal stress test AFib; rate controlled Status post heart valves replacement Hypertensive heart disease with acute on chronic diastolic heart failure SIRISHA; most likely vasomotor nephropathy Normocytic anemia; most likely inflammatory due to above Malnutrition Telemetry; reviewed available EKG and telemetry monitoring Cardiology is following; pending final decision regarding intervention in the setting of abnormal stress test Continue therapeutic enoxaparin Continue aspirin and statin Reviewed lab work and available imaging studies include echocardiogram Continue antihypertensive medication and adjust according to blood pressure measurements Avoid nephrotoxic agents Continue IV diuresis Continue monitoring Unstable to transfer to [facility] Late Entry. This medical document was created using an electronic medical record system with computerized dictation system. Although this document has been carefully reviewed, there might still be some phonetic and typographical errors. These areas are purely typographical due to imperfections of the software programs, and do not reflect any compromise in the patient's medical care. Plan discussed with: Patient, Other (Nurse) My Orders Orders - JOSE L HAQ MD Procedure Category Date Status Time Code Status CODE 12/17/24 Verified 06:50 Date of Service: Dec 17, 2024 Billing Provider: JOSE L HAQ MD Common Visit Codes: [id number] INP/OBS CARE(HIGH) JOSE L HAQ MD Dec 17, 2024 06:52
[2024-12-17 07:26] LABS: Hematocrit 30.4 % (41.0-53.0); Hemoglobin 9.8 g/dL (13.5-17.5); Mean Corpuscular Hemoglobin 29.8 pg (28.0-32.0); Mean Corpuscular Volume 92.2 fL (80.0-100.0); Nucleated Red Blood Cells % 0.0 %
[2024-12-17 07:39] LABS: Chloride 98 mmol/L (98-107); Potassium 4.6 mmol/L (3.5-5.1); Sodium 139 mmol/L (136-145)
[2024-12-17 07:40] LABS: Anion Gap 6 (5-15); Calcium 8.8 mg/dL (8.7-10.4)
[2024-12-17 07:42] LABS: Carbon Dioxide 35 mmol/L (20-31)
[2024-12-17 07:45] LABS: BUN/Creatinine Ratio 7.8 (10.0-20.0); Blood Urea Nitrogen 10 mg/dL (9-23)
[2024-12-17 07:51] LABS: Glucose 112 mg/dL (74-106)
--- NOTE | 2024-12-17 12:10 | DVHSR ---
APPROVED REPORT Exam: Nuclear Stress Test BMI: 0 Stress Test Details Stress Test: Pharmacologic stress testing performed using 0.4 mg of regadenoson per 5 mL given IV ov er 10 seconds. HR Resting HR: 48 bpmMax Heart Rate (APMHR): 141.716870 bpm Max HR Achieved: 63 bpmTarget HR (85% APMHR): 119.117678 bpm % of APMHR: 44.68 Recovery HR: 52 bpm BP Resting BP: 131/67 mmHg Recovery BP: 119/69 mmHg ECG Resting ECG: Atrial Fibrillation, PVC Clinical Reason for Termination: Completed protocol Nurse Comments Recieved pt. from [facility]. A/Ox4 on 2L oxygen via NC. Connected to library circulation technician, VS stable. PIV fl ushes well. Reviewed POC. Pt. verbalized understanding of procedure including risks and side effects, agrees for stress testing. Lexiscan stress test performed per protocol. [facility] tech administered Cardiolite. Pt. tolerated well . Pt. stable, no change on exam. VS returned to baseline. Transferred to [facility] via wheelchair w/ te ch. Stress ECG Conclusion lvef 46% inferolateral wal fixed infarct jose alfredo episodes during stress portion could be 2/2 to medication use NM EXAM: Myocardial Perfusion REST/STRESS Imaging Protocol: Rest Tc-99m/Stress Tc-99m 1 day Resting Data Rest SPECT myocardial perfusion imaging was performed in supine position 60 minutes following the int ravenous injection of 11.0 mCi of Tc-99m Sestamibi. Time of rest injection: 10:15 Date: 12/16/2024 Time of rest imagin:15 Date: 12/16/2024 Administration Route: IV Administration Site: Left Arm Pharmacologic Stress Pharmacologic stress test was performed by injecting Regadenoson 0.4 mg IV push followed by the intra venous injection of 30.2 mCi of Tc-99m Sestamibi. Time of stress injection: 11:44 Date: 12/16/2024 Time of stress imagin:44 Date: 12/16/2024 Administration Route: IV Administration Site: Left Arm Gated Stress SPECT was performed 60 minutes after stress injection. The images were gated to evaluate regional wall motion and calculate left ventricular ejection fracti on. Stress only was performed in the Supine position. Nuclear Conclusion lvef 46% inferolateral wal fixed infarct jose alfredo episodes during stress portion could be 2/2 to medication use
[2024-12-18] VITALS (10 sets, daily range): BP systolic 98–124; BP diastolic 54–73; PULSE 50–71; RESP 14–17; TEMP 97.7–98.7; O2SAT 96–100
[2024-12-18] MEDS: ACETAMINOPHEN 325 MG TAB PO PRN (02:37)
[2024-12-18 07:57] LABS: Hematocrit 32.6 % (41.0-53.0); Hemoglobin 10.7 g/dL (13.5-17.5); Mean Corpuscular Hemoglobin 30.3 pg (28.0-32.0); Mean Corpuscular Volume 92.6 fL (80.0-100.0); Nucleated Red Blood Cells % 0.1 %
[2024-12-18 08:00] LABS: Alanine Aminotransferase 12 U/L (7-40); Albumin 3.9 g/dL (3.2-4.8); Alkaline Phosphatase 113 U/L (46-116); Anion Gap 4 (5-15); BUN/Creatinine Ratio 9.3 (10.0-20.0); Blood Urea Nitrogen 14 mg/dL (9-23); Calcium 8.9 mg/dL (8.7-10.4); Glucose 84 mg/dL (74-106); Sodium 138 mmol/L (136-145); Total Protein 7.1 g/dL (5.7-8.2)
[2024-12-18 08:01] LABS: Bilirubin, Total 0.5 mg/dL (0.2-1.0)
[2024-12-18 08:02] LABS: Carbon Dioxide 38 mmol/L (20-31); Chloride 96 mmol/L (98-107); Potassium 5.3 mmol/L (3.5-5.1)
--- NOTE | 2024-12-18 08:25 | DVHPN2 ---
Subjective Continue to complain of chest pain Reviewed: Care Plan, H&P, Labs, Medications, Previous Orders, Radiology, Other Changes from previous H/P or p: No Changes Objective Vitals Vital Signs Date Time Temp Pulse Resp B/P (MAP) Pulse Ox O2 Delivery O2 Flow Rate FiO2 12/18/24 06:57 112/55 12/18/24 06:23 100 Nasal Cannula 2.0 12/18/24 06:23 28 12/18/24 05:22 98.7 68 17 98.7 Intake/Output Intake and Output 12/18/24 07:00 Intake Total 1250 ml Output Total 1970 ml Balance -720 ml Intake Oral 1250 ml Output Urine Total 1970 ml # Voids 5 General Appearance: Alert, Oriented X3, Cooperative HEENT: Atraumatic Lungs: Other (Decreased air entry bilaterally with scattered crackles) Cardiovascular: Other (Irregularly irregular with abnormal S1 and S2) Abdomen: Normal bowel sounds, Soft, No tenderness Neuro: Normal speech, Cranial nerves 3-12 NL Psych/Mental Status: Mental status NL, Mood NL Medications Current Medications Medications Dose Ordered Sig/Ricky Route Start Time Stop Time Status Last Admin Dose Admin Aspirin 81 mg DAILY PO 12/16/24 10:00 12/17/24 09:40 81 MG Ondansetron HCl 4 mg Q4HP PRN IV 12/15/24 19:30 Acetaminophen 650 mg Q6HP PRN PO 12/15/24 19:30 12/18/24 02:37 650 MG Nitroglycerin 0.4 mg Q5MINP PRN SL 12/15/24 19:30 Morphine Sulfate 2 mg Q30M PRN IV 12/15/24 19:30 Lisinopril 10 mg DAILY PO 12/16/24 10:00 12/17/24 09:40 10 MG Albuterol 2.5 mg Q6HPRN PRN NEB 12/15/24 21:45 Atorvastatin Calcium 40 mg HS PO 12/16/24 22:00 12/17/24 20:35 40 MG Furosemide 40 mg BIDD IV 12/16/24 18:00 12/18/24 06:57 40 MG Enoxaparin Sodium 70 mg Q12HR SC 12/16/24 10:00 12/17/24 20:35 70 MG Laboratory Results Laboratory Tests 12/18/24 06:50 Chemistry Test 12/18/24 06:50 Albumin 3.9 g/dL (3.2-4.8) Calcium Level 8.9 mg/dL (8.7-10.4) Total Protein 7.1 g/dL (5.7-8.2) LFT Test 12/18/24 06:50 Alanine Aminotransferase (ALT) 12 U/L (7-40) Alkaline Phosphatase 113 U/L (46-116) Aspartate Amino Transferase (AST) 22 U/L (13-40) Total Bilirubin 0.5 mg/dL (0.2-1.0) Urinalysis Test 12/16/24 16:15 Urine Color Light-yellow (Yellow) Urine Clarity Clear (Clear) Urine pH 6.5 (5.0-9.0) Urine Specific [place] 1.014 (1.001-1.035) Urine Protein Negative (Negative) Urine Ketones Negative (Negative) Urine Blood Negative /uL (Negative) Urine Nitrite Negative (Negative) Urine Bilirubin Negative (Negative) Urine Urobilinogen Normal mg/dL (Negative) Urine Leukocyte Esterase Negative /uL (Negative) Urine RBC 1 /hpf (0 - 3) Urine Microscopic WBC 1 /HPF (0-3) Urine Squamous Epithelial Cells None seen /hpf (<5) Urine Bacteria None seen /hpf (None Seen) Urine Glucose 4+ mg/dL (Normal) H Microbiology Microbiology Date/Time Source Procedure Growth Status 12/16/24 06:00 Nose MRSA Screen - Final Complete Labs and/or images reviewed: Labs reviewed by me, Image(s) reviewed by me Assessment/Plan Assessment/Plan Covering: Acute hypoxic respiratory failure due to acute on chronic diastolic heart failure Chest pain; to rule out ACS; abnormal stress test AFib; rate controlled Status post heart valves replacement Hypertensive heart disease with acute on chronic diastolic heart failure SIRISHA; most likely vasomotor nephropathy Normocytic anemia; most likely inflammatory due to above Malnutrition Telemetry; reviewed available EKG and telemetry monitoring Cardiology is following: Clear to be transferred to [facility] for further intervention for abnormal stress test Continue therapeutic enoxaparin Continue aspirin and statin Reviewed lab work and available imaging studies include echocardiogram Continue antihypertensive medication and adjust according to blood pressure measurements Avoid nephrotoxic agents Continue IV diuresis Continue monitoring Stable to transfer to [facility] as per cardiology Late Entry. This medical document was created using an electronic medical record system with computerized dictation system. Although this document has been carefully reviewed, there might still be some phonetic and typographical errors. These areas are purely typographical due to imperfections of the software programs, and do not reflect any compromise in the patient's medical care. Plan discussed with: Patient, Other (Nurse) Date of Service: Dec 18, 2024 Billing Provider: JOSE L HAQ MD Common Visit Codes: [id number] INP/OBS CARE(HIGH) JOSE L HAQ MD Dec 18, 2024 08:25
[2024-12-18] MEDS: ENOXAPARIN SOD 60 MG/0.6 ML SYRINGE SC SCH (10:46)
--- NOTE | 2024-12-18 11:32 | DVHPN2 ---
Subjective No cardiac event reported Reviewed: Care Plan, H&P, Labs, Medications, Previous Orders, Radiology Changes from previous H/P or p: No Changes Objective Vitals Vital Signs Date Time Temp Pulse Resp B/P (MAP) Pulse Ox O2 Delivery O2 Flow Rate FiO2 12/18/24 10:45 113/73 12/18/24 09:00 97.8 56 15 100 97.8 12/18/24 06:23 Nasal Cannula 2.0 12/18/24 06:23 28 Intake/Output Intake and Output 12/18/24 07:00 Intake Total 1250 ml Output Total 1970 ml Balance -720 ml Intake Oral 1250 ml Output Urine Total 1970 ml # Voids 5 General Appearance: Alert, Oriented X3, Cooperative Medications Current Medications Medications Dose Ordered Sig/Ricky Route Start Time Stop Time Status Last Admin Dose Admin Aspirin 81 mg DAILY PO 12/16/24 10:00 12/18/24 10:46 81 MG Ondansetron HCl 4 mg Q4HP PRN IV 12/15/24 19:30 Acetaminophen 650 mg Q6HP PRN PO 12/15/24 19:30 12/18/24 02:37 650 MG Nitroglycerin 0.4 mg Q5MINP PRN SL 12/15/24 19:30 Morphine Sulfate 2 mg Q30M PRN IV 12/15/24 19:30 Lisinopril 10 mg DAILY PO 12/16/24 10:00 12/18/24 10:45 10 MG Albuterol 2.5 mg Q6HPRN PRN NEB 12/15/24 21:45 Atorvastatin Calcium 40 mg HS PO 12/16/24 22:00 12/17/24 20:35 40 MG Furosemide 40 mg BIDD IV 12/16/24 18:00 12/18/24 06:57 40 MG Enoxaparin Sodium 60 mg Q12HR SC 12/18/24 10:00 12/18/24 10:46 60 MG Laboratory Results Laboratory Tests 12/18/24 06:50 Chemistry Test 12/18/24 06:50 Albumin 3.9 g/dL (3.2-4.8) Calcium Level 8.9 mg/dL (8.7-10.4) Total Protein 7.1 g/dL (5.7-8.2) LFT Test 12/18/24 06:50 Alanine Aminotransferase (ALT) 12 U/L (7-40) Alkaline Phosphatase 113 U/L (46-116) Aspartate Amino Transferase (AST) 22 U/L (13-40) Total Bilirubin 0.5 mg/dL (0.2-1.0) Urinalysis Test 12/16/24 16:15 Urine Color Light-yellow (Yellow) Urine Clarity Clear (Clear) Urine pH 6.5 (5.0-9.0) Urine Specific [place] 1.014 (1.001-1.035) Urine Protein Negative (Negative) Urine Ketones Negative (Negative) Urine Blood Negative /uL (Negative) Urine Nitrite Negative (Negative) Urine Bilirubin Negative (Negative) Urine Urobilinogen Normal mg/dL (Negative) Urine Leukocyte Esterase Negative /uL (Negative) Urine RBC 1 /hpf (0 - 3) Urine Microscopic WBC 1 /HPF (0-3) Urine Squamous Epithelial Cells None seen /hpf (<5) Urine Bacteria None seen /hpf (None Seen) Urine Glucose 4+ mg/dL (Normal) H Microbiology Microbiology Date/Time Source Procedure Growth Status 12/16/24 06:00 Nose MRSA Screen - Final Complete Assessment/Plan Assessment/Plan Atrial fibrillation with slow ventricular rate, likely stage IIIB (on warfarin) Acute on chronic decompensated unspecified heart failure, NYHA class III Chest pain rule out progressive coronary artery disease Coronary artery disease status post unspecified vessel CABG Status post TAVR (bioprosthetic) Hypertension Anemia of chronic disease Plan: Stress test results: Nuclear Conclusion lvef 46% inferolateral wal fixed infarct Plan: discussed medical plan with Dr. Tinsley, agree to transfer to [facility], for possible pacemaker implantation Plan discussed with: Patient Date of Service: Dec 18, 2024 Billing Provider: YONG TINSLEY MD Common Visit Codes: NOT BILLABLE Consultation Codes: [id number] CONSULT <45MIN FANTASMA COOPER [employer] ICER Dec 18, 2024 11:32
[2024-12-18 12:08] LABS: Potassium 4.2 mmol/L (3.5-5.1); Sodium 139 mmol/L (136-145)
[2024-12-18 12:09] LABS: Anion Gap 4 (5-15); Calcium 9.0 mg/dL (8.7-10.4)
[2024-12-18 12:11] LABS: Carbon Dioxide 39 mmol/L (20-31); Chloride 96 mmol/L (98-107)
[2024-12-18 12:14] LABS: BUN/Creatinine Ratio 10.1 (10.0-20.0); Blood Urea Nitrogen 14 mg/dL (9-23); Glucose 95 mg/dL (74-106)
--- NOTE | 2024-12-18 13:29 | DVHDS2 ---
Discharge Summary Date of Admission Dec 15, 2024 at 19:21 Date of Discharge: Dec 18, 2024 Admitting Diagnosis Chest pain Labs/Diagnostic Data: Laboratory Results Test 12/18/24 11:15 12/18/24 06:50 12/16/24 16:15 12/16/24 06:06 Sodium Level 139 mmol/L (136-145) Potassium Level 4.2 mmol/L (3.5-5.1) Chloride Level 96 mmol/L (98-107) Carbon Dioxide Level 39 mmol/L (20-31) Anion Gap 4 (5-15) Blood Urea Nitrogen 14 mg/dL (9-23) Creatinine 1.38 mg/dL (0.700-1.30) Glomerular Filtration Rate Calc 52 mL/min (>90) BUN/Creatinine Ratio 10.1 (10.0-20.0) Serum Glucose 95 mg/dL (74-106) Calcium Level 9.0 mg/dL (8.7-10.4) White Blood Count 6.7 10^3/uL (4.4-10.8) Red Blood Count 3.52 10^6/uL (4.5-5.90) Hemoglobin 10.7 g/dL (13.5-17.5) Hematocrit 32.6 % (41.0-53.0) Mean Corpuscular Volume 92.6 fL (80.0-100.0) Mean Corpuscular Hemoglobin 30.3 pg (28.0-32.0) Mean Corpuscular Hemoglobin Concent 32.7 g/dL (32.0-36.0) Red Cell Distribution Width 17.2 % (11.8-14.3) Platelet Count 200 10^3/uL (140-450) Mean Platelet Volume 8.5 fL (6.9-10.8) Neutrophils (%) (Auto) 62.9 % (37.0-80.0) Lymphocytes (%) (Auto) 24.8 % (10.0-50.0) Monocytes (%) (Auto) 8.9 % (0.0-12.0) Eosinophils (%) (Auto) 2.7 % (0.0-7.0) Basophils (%) (Auto) 0.7 % (0.0-2.0) Neutrophils # (Auto) 4.2 10 ^3/uL (1.6-8.6) Lymphocytes # (Auto) 1.7 10 ^3/uL (0.4-5.4) Monocytes # (Auto) 0.6 10 ^3/uL (0-1.3) Eosinophils # (Auto) 0.2 10 ^3/uL (0-0.8) Basophils # (Auto) 0 10 ^3/uL (0-0.2) Nucleated Red Blood Cells 0.1 % Total Bilirubin 0.5 mg/dL (0.2-1.0) Aspartate Amino Transferase (AST) 22 U/L (13-40) Alanine Aminotransferase (ALT) 12 U/L (7-40) Alkaline Phosphatase 113 U/L (46-116) Total Protein 7.1 g/dL (5.7-8.2) Albumin 3.9 g/dL (3.2-4.8) Urine Color Light-yellow (Yellow) Urine Clarity Clear (Clear) Urine pH 6.5 (5.0-9.0) Urine Specific [place] 1.014 (1.001-1.035) Urine Protein Negative (Negative) Urine Ketones Negative (Negative) Urine Blood Negative /uL (Negative) Urine Nitrite Negative (Negative) Urine Bilirubin Negative (Negative) Urine Urobilinogen Normal mg/dL (Negative) Urine Leukocyte Esterase Negative /uL (Negative) Urine RBC 1 /hpf (0 - 3) Urine Microscopic WBC 1 /HPF (0-3) Urine Squamous Epithelial Cells None seen /hpf (<5) Urine Bacteria None seen /hpf (None Seen) Urine Glucose 4+ mg/dL (Normal) Hemoglobin A1c 5.4 % A1C (<5.7) Magnesium Level 2.3 mg/dL (1.6-2.6) B-Type Natriuretic Peptide 1008.80 pg/mL (0-100) Hepatitis B Surface Antigen Negative (Negative) Hepatitis C Antibody Negative (Negative) Test 12/15/24 22:00 12/15/24 12:40 Prothrombin Time 11.8 sec (9.3-11.8) Prothrombin Time INR 1.13 (0.9-1.15) Activated Partial Thromboplast Time 25.5 SEC (24.5-34.5) Iron Level 28 ug/dL (65-175) Total Iron Binding Capacity 350 ug/dL (250-425) Percent Iron Saturation 8.0 % (20-55) Triglycerides Level 32 mg/dL (< 150) Cholesterol Level 121 mg/dL (< 200) LDL Cholesterol 54 mg/dL (< 100) HDL Cholesterol 54 mg/dL (40-59) Troponin I High Sensitivity 44 ng/L (</=54) Thyroid Stimulating Hormone (TSH) 1.22 uIU/mL (0.55-4.78) Other Laboratory Tests 12/18/24 11:15 12/18/24 06:50 Brief Hx & Hospital Course: Covering: A 79-year-old male patient; with multiple comorbidities; who presented to the emergency department with chest pain. Evaluated by Cardiology with the echocardiogram and stress test and will need further intervention so will be transferred to [facility]. Details as below. For further details as per EMR. Acute hypoxic respiratory failure due to acute on chronic diastolic heart failure Chest pain; to rule out ACS; abnormal stress test AFib; rate controlled Status post heart valves replacement Hypertensive heart disease with acute on chronic diastolic heart failure SIRISHA; most likely vasomotor nephropathy Normocytic anemia; most likely inflammatory due to above Malnutrition Telemetry; reviewed available EKG and telemetry monitoring Cardiology is following: Cleared to be transferred to [facility] for further intervention for abnormal stress test Continue therapeutic enoxaparin Continue aspirin and statin Reviewed lab work and available imaging studies include echocardiogram Continue antihypertensive medication and adjust according to blood pressure measurements Continue oxygen therapy as indicated No symptoms/signs of active bleeding Avoid nephrotoxic agents Continue IV diuresis Continue monitoring Stable to transfer to [facility] as per cardiology Late Entry. This medical document was created using an electronic medical record system with computerized dictation system. Although this document has been carefully reviewed, there might still be some phonetic and typographical errors. These areas are purely typographical due to imperfections of the software programs, and do not reflect any compromise in the patient's medical care. Consults/Reason for consult Cardiology for chest pain Condition at Discharge: Stable (To be transferred as per cardiology) Final Diagnosis/Problems List Acute hypoxic respiratory failure due to acute on chronic diastolic heart failure Chest pain; to rule out ACS; abnormal stress test AFib; rate controlled Status post heart valves replacement Hypertensive heart disease with acute on chronic diastolic heart failure SIRISHA; most likely vasomotor nephropathy Normocytic anemia; most likely inflammatory due to above Malnutrition Discharge Disposition: Acute Care Facility ([facility]) Discharge Instruct/Medications Diet: Cardiac 2g Na,low cholest Activity: No Restrictions, As Tolerated Follow Up/Referral: At [facility] Medications: To continue inpatient medications; transfer paperwork filled and signed Discharge Statement: "Patient was advised to return to the ER or call 911 if any headaches, dizziness, shortness of breath, chest pain, abdominal pain, bleeding, fevers, or worsening of medical condition. Patient was counseled about treatment plan, medications, possible side effects, patientverbalized understanding. All questions were answered to the best of my ability. This discharge took greater then 30 minutes in planning, reviewing documentation, counseling the patient, and discussing with other team members." ASSESSMENT ASSESSMENT Assessment Acute hypoxic respiratory failure due to acute on chronic diastolic heart failure Chest pain; to rule out ACS; abnormal stress test AFib; rate controlled Status post heart valves replacement Hypertensive heart disease with acute on chronic diastolic heart failure SIRISHA; most likely vasomotor nephropathy Normocytic anemia; most likely inflammatory due to above Malnutrition Date of Service: Dec 18, 2024 Billing Provider: JOSE L HAQ MD Common Visit Codes: [id number] DISCH DAY >30min JOSE L HAQ MD Dec 18, 2024 13:29
== END 2024-12-19 00:29 | disposition short-term general hospital (02) | DRG 291 ==
LOC: ER 09:18 → OVERFLOW 19:21 → TELE-CENTR 23:24
PROVIDERS: ADMIT Internal Medicine; ATTEND Internal Medicine
DX: I11.0 Hypertensive heart disease with heart failure (principal); I50.33 Acute on chronic diastolic (congestive) heart failure; J96.01 Acute respiratory failure with hypoxia; N17.0 Acute kidney failure with tubular necrosis; E46 Unspecified protein-calorie malnutrition; I24.9 Acute ischemic heart disease, unspecified; Z68.1 Body mass index [BMI] 19.9 or less, adult; D63.8 Anemia in other chronic diseases classified elsewhere; I25.10 Atherosclerotic heart disease of native coronary artery without angina pectoris; J44.9 Chronic obstructive pulmonary disease, unspecified; E78.5 Hyperlipidemia, unspecified; I35.0 Nonrheumatic aortic (valve) stenosis; I48.91 Unspecified atrial fibrillation; Z79.01 Long term (current) use of anticoagulants; Z95.1 Presence of aortocoronary bypass graft; Z95.3 Presence of xenogenic heart valve; Z79.82 Long term (current) use of aspirin
CPT/HCPCS: 36415; 71045; 78452; 80048; 80053; 80061; 81001; 83036; 83540; 83550; 83735; 83880; 84443; 84484; 85025; 85610; 85730; 86803; 87081; 87340; 93005; 93017; 93306; 99291; G0378